=== PATIENT | male | born 1970 | race African-American/Black ===

== ENCOUNTER 2022-08-09 22:59 | Emergency (ER) | payer OTHER ==
[~2022-08-09] VITALS: Ht 185.4 cm; Wt 100.0 kg
[2022-08-09] MEDS ORDERED: LIDOCAINE HCL/EPINEPHRINE 1%-EPI 1:100,000 10 ML VIAL INFIL NR (23:45)
[2022-08-09] MEDS ORDERED: MORPHINE SULFATE 4 MG/ML CPJ (NOT FOR IM USE) IV ONE (23:45)
[2022-08-09] MEDS ORDERED: TETANUS, DIPHTHERIA, PERTUSSIS VAC/PF 0.5ML (>10YR OLD) IM ONE (23:45)
[2022-08-09] MEDS ORDERED: CEFTRIAXONE 1 G PREMIX 50 ML IV ONE (23:45)
[2022-08-09] MEDS ORDERED: LIDOCAINE HCL/EPINEPHRINE 1%-EPI 1:100,000 20 ML VIAL INFIL ONE (23:45)
[2022-08-09] MEDS ORDERED: BACITRACIN ZINC OINT UDPKT TOP ONE (23:45)
[2022-08-10] MEDS ORDERED: CEPH500T MT (01:32)
[2022-08-10] MEDS ORDERED: HYDR-4001 MT (01:36)
[2022-08-10] MEDS ORDERED: HYDROCODONE/ACETAMINOPHEN 5/325MG TABLET PO ONE (02:30)
[2022-08-10 02:45] VITALS: BP 120/69
== END 2022-08-10 03:00 | disposition home or self-care (01) ==
LOC: ER 22:59
DX: S61.335A Puncture wound without foreign body of left ring finger with damage to nail, initial encounter (principal); X58.XXXA Exposure to other specified factors, initial encounter; Y93.89 Activity, other specified; Y92.9 Unspecified place or not applicable; Z23 Encounter for immunization; Z71.85 Encounter for immunization safety counseling
CPT/HCPCS: 73130; 90471; 90715; 96365; 96375; 99284; J0696; J2270; J3490; Z7610